=== PATIENT | male | born 1965 | race Caucasian/White ===

== ENCOUNTER 2020-04-02 10:47 | Emergency (ER) | payer SELFPAY ==
--- NOTE | 2020-04-02 11:13 | ER Document Report ---
ED Medical Screen (RME) - General Chief Complaint: Psych Problem Stated Complaint: PSYCH ISSUE/NEW MEDS NOT WORKING Time Seen by Provider: 04/02/20 11:09 Mode of Arrival: Ambulatory Information source: Patient Notes: 54-year-old male presents to ED for complaint of a lot of stress and despondency hopelessness since last week. He states that he does not plan to harm himself or kill himself he just would not mind dying at all. He states he did attempt suicide in August but does not plan to do this on his own now. He states he did have a 20-year marriage with his and had 3 children. He states he is been in [facility] for a while but got section 8 housing and now lives by himself since January 15 and he cannot stand being by himself. He states he rarely eats does not buy groceries he keeps his health and his person clean but does not eat except for enough to take his medication. He states his 3 children came to see him on Thursday and he was "not there "and now he feels extremely guilty because he was not present for this visit. He states he does smoke a pack a day does not drink or do any illicit drugs. He states [facility] this [facility] and [facility] told him that he needed to come right to the ED. He does have a home therapist that he does video visits with [facility] the [facility]. I have greeted and performed a rapid initial assessment of this patient. A comprehensive ED assessment and evaluation of the patient, analysis of test results and completion of medical decision making process will be conducted by an additional ED providers. - Related Data Allergies/Adverse Reactions: No Known Allergies Allergy (Unverified 04/02/20 11:08) Home Medications: latuda, gabapentin
[2020-04-02 12:06] LABS: APPEARANCE,URINE CLEAR; BILIRUBIN,URINE NEGATIVE (NEGATIVE); COLOR,URINE YELLOW; GLUCOSE, URINE NEGATIVE (NEGATIVE); KETONES,URINE NEGATIVE (NEGATIVE); LEUKOCYTE ESTERASE,URINE NEGATIVE (NEGATIVE); NITRITE,URINE NEGATIVE (NEGATIVE); PROTEIN,URINE NEGATIVE (NEGATIVE); URINE SPECIFIC GRAVITY 1.018; UROBILINOGEN,URINE NEGATIVE mg/dL (<2.0)
[2020-04-02 12:12] LABS: ABSOLUTE LYMPHOCYTES (AUTO) 0.9 10^3/uL (0.5-4.7); ABSOLUTE MONOCYTES (AUTO) 0.4 10^3/uL (0.1-1.4); ABSOLUTE NEUT (AUTO) 4.1 10^3/uL (1.7-8.2); BASOPHILS % (AUTO) 0.6 % (0-2); EOSINOPHILS % (AUTO) 0.3 % (0-6); HEMATOCRIT 38.7 % (37.9-51.0); HEMOGLOBIN 13.1 g/dL (13.5-17.0); LYMPHOCYTES % (AUTO) 16.7 % (13-45); MEAN CORPUSCULAR HEMOGLOBIN 30.5 pg (27.0-33.4); MEAN CORPUSCULAR HGB CONC 33.9 g/dL (32.0-36.0); MEAN CORPUSCULAR VOLUME 90 fl (80-97); MONOCYTES % (AUTO) 6.5 % (3-13); PLATELET COUNT 188 10^3/uL (150-450); RED CELL DISTRIBUTION WIDTH 14.5 % (11.5-14.0); SEGMENTED NEUTROPHILS % (AUTO) 75.9 % (42-78); TOTAL CELLS COUNTED % (AUTO) 100 %; WHITE BLOOD COUNT 5.4 10^3/uL (4.0-10.5)
[2020-04-02 12:31] LABS: ALBUMIN 4.5 g/dL (3.5-5.0); ALKALINE PHOSPHATASE 56 U/L (38-126); ANION GAP 8 (5-19); ASPARTATE AMINO TRANSFERASE 21 U/L (17-59); BILIRUBIN,TOTAL 0.7 mg/dL (0.2-1.3); BLOOD UREA NITROGEN 15 mg/dL (7-20); CALCIUM 9.6 mg/dL (8.4-10.2); CARBON DIOXIDE 24 mmol/L (22-30); CHLORIDE 107 mmol/L (98-107); GLUCOSE 91 mg/dL (75-110); POTASSIUM 4.4 mmol/L (3.6-5.0); TOTAL PROTEIN 7.3 g/dL (6.3-8.2)
[2020-04-02 12:33] LABS: URINE AMPHETAMINES SCREEN NEGATIVE; URINE BARBITURATES SCREEN NEGATIVE; URINE BENZODIAZEPINES SCREEN NEGATIVE; URINE COCAINE SCREEN NEGATIVE; URINE MARIJUANA (THC) SCREEN NEGATIVE; URINE METHADONE SCREEN NEGATIVE; URINE PHENCYCLIDINE SCREEN NEGATIVE
[2020-04-02 12:33] LABS: ACETAMINOPHEN < 10 ug/mL (10-30); ALCOHOL < 10 mg/dL (NONE DETECTED); SALICYLATE < 1.0 mg/dL (2.0-20.0)
--- NOTE | 2020-04-02 13:41 | ER Document Report ---
ED Psych Disorder / Suicide - General Chief Complaint: Psych Problem Stated Complaint: PSYCH ISSUE/NEW MEDS NOT WORKING Time Seen by Provider: 04/02/20 11:09 Primary Care Provider: [facility] [Provider Group] - Follow up in 3-5 days Mode of Arrival: Ambulatory Information source: Patient Notes: Patient presents complaining of increased stress and difficulty adjusting to living alone. Patient states he used to be homeless and he has several friends that he hung out with when he was homeless. Patient states that because he is in section 8 housing he cannot have anybody else at his house. Patient states that he had an anxiety attack that made him very nervous at home. Patient denies any suicidal or homicidal ideation. Patient states that he takes Latuda for his anxiety and depression symptoms. - HPI Patient complains to provider of: No: Suicidal ideation, Suicidal plan, Suicidal attempt Onset: This morning Quality of pain: No pain Suicide Risk Factors: Depressed, Male, No spouse Situational problems related to: Other - Lives alone Associated symptoms: Anxious, Depressed Similar symptoms previously: No Recently seen / treated by doctor: No - Related Data Allergies/Adverse Reactions: No Known Allergies Allergy (Unverified 04/02/20 11:08) Home Medications: latuda, gabapentin Past Medical History - General Information source: Patient - Social History Smoking Status: Current Every Day Smoker Chew tobacco use (# tins/day): No Frequency of alcohol use: None Drug Abuse: None Lives with: Alone Family History: Reviewed & Not Pertinent Patient has homicidal ideation: No Psychiatric Medical History: Reports: Hx Anxiety, Hx Depression Past Surgical History: Reports: Hx Herniorrhaphy Review of Systems - Review of Systems Constitutional: No symptoms reported EENT: No symptoms reported Cardiovascular: No symptoms reported Respiratory: No symptoms reported Gastrointestinal: No symptoms reported Genitourinary: No symptoms reported Male Genitourinary: No symptoms reported Musculoskeletal: No symptoms reported Skin: No symptoms reported Hematologic/Lymphatic: No symptoms reported Neurological/Psychological: Depression, Anxiety Physical Exam - Vital signs Vitals: Temp Pulse Resp BP Pulse Ox 98.7 F 45 L 18 108/64 98 04/02/20 14:32 04/02/20 14:32 04/02/20 14:32 04/02/20 14:32 04/02/20 14:32 - General General appearance: Appears well, Alert In distress: None - HEENT Head: Normocephalic, Atraumatic Eyes: Normal Conjunctiva: Normal Nasal: Normal Mouth/Lips: Normal Mucous membranes: Normal Neck: Normal, Supple. No: Lymphadenopathy - Respiratory Respiratory status: No respiratory distress Chest status: Nontender Breath sounds: Normal. No: Rales, Rhonchi, Stridor, Wheezing Chest palpation: Normal - Cardiovascular Rhythm: Regular Heart sounds: S1 appreciated, S2 appreciated Murmur: No - Abdominal Inspection: Normal - Back Back: Normal, Nontender - Extremities General upper extremity: Normal inspection, Nontender, Normal strength General lower extremity: Normal inspection, Nontender, Normal strength - Neurological Neuro grossly intact: Yes Cognition: Normal Lamonte Coma Scale Eye Opening: Spontaneous Jerome Coma Scale Verbal: Oriented Jerome Coma Scale Motor: Obeys Commands Jerome Coma Scale Total: 15 - Psychological Associated symptoms: Psychomotor agitation, Other - Poor eye contact - Skin Skin Temperature: Warm Skin Moisture: Dry Skin Color: Normal Course - Re-evaluation Re-evalutation: 04/02/20 16:49 Patient is medically clear for discharge at this time, behavioral health team does not feel that patient meets IVC criteria. They do make a recommendation in consultation with his [facility] provider to start BuSpar 5 mg twice a day and to increase Latuda to 40 mg daily. - Vital Signs Vital signs: Temp Pulse Resp BP Pulse Ox 98.7 F 45 L 18 108/64 98 04/02/20 14:32 04/02/20 14:32 04/02/20 14:32 04/02/20 14:32 04/02/20 14:32 - Laboratory Result Diagrams: 04/02/20 11:26 04/02/20 11:26 Laboratory results interpreted by me: 04/02/20 04/02/20 04/02/20 11:20 11:26 11:26 RBC 4.30 L Hgb 13.1 L RDW 14.5 H Urine Blood SMALL H Salicylates < 1.0 L Acetaminophen < 10 L 04/02/20 16:49 Labs- All tests 24 hr 04/02/20 04/02/20 04/02/20 11:20 11:20 11:26 WBC 5.4 RBC 4.30 L Hgb 13.1 L Hct 38.7 MCV 90 MCH 30.5 MCHC 33.9 RDW 14.5 H Plt Count 188 Lymph % (Auto) 16.7 Panola % (Auto) 6.5 Eos % (Auto) 0.3 Baso % (Auto) 0.6 Absolute Neuts (auto) 4.1 Absolute Lymphs (auto) 0.9 Absolute Monos (auto) 0.4 Absolute Eos (auto) 0.0 Absolute Basos (auto) 0.0 Seg Neutrophils % 75.9 Sodium Potassium Chloride Carbon Dioxide Anion Gap BUN Creatinine Est GFR ( Amer) Est GFR (MDRD) Non-Af Glucose Calcium Total Bilirubin Direct Bilirubin Neonat Total Bilirubin Neonat Direct Bilirubin Neonat Indirect Bili AST ALT Alkaline Phosphatase Total Protein Albumin Urine Color YELLOW Urine Appearance CLEAR Urine pH 5.0 Ur Specific [place] 1.018 Urine Protein NEGATIVE Urine Glucose (UA) NEGATIVE Urine Ketones NEGATIVE Urine Blood SMALL H Urine Nitrite NEGATIVE Urine Bilirubin NEGATIVE Urine Urobilinogen NEGATIVE Ur Leukocyte Esterase NEGATIVE Urine WBC (Auto) 0 Urine RBC (Auto) 1 U Hyaline Cast (Auto) 1 Urine Mucus (Auto) RARE Urine Ascorbic Acid NEGATIVE Salicylates Urine Opiates Screen NEGATIVE Urine Methadone Screen NEGATIVE Acetaminophen Ur Barbiturates Screen NEGATIVE Ur Phencyclidine Scrn NEGATIVE Ur Amphetamines Screen NEGATIVE U Benzodiazepines Scrn NEGATIVE Urine Cocaine Screen NEGATIVE U Marijuana (THC) Screen NEGATIVE Serum Alcohol 04/02/20 11:26 WBC RBC Hgb Hct MCV MCH MCHC RDW Plt Count Lymph % (Auto) [place] % (Auto) Eos % (Auto) Baso % (Auto) Absolute Neuts (auto) Absolute Lymphs (auto) Absolute Monos (auto) Absolute Eos (auto) Absolute Basos (auto) Seg Neutrophils % Sodium 138.5 Potassium 4.4 Chloride 107 Carbon Dioxide 24 Anion Gap 8 BUN 15 Creatinine 0.94 Est GFR ( Amer) > 60 Est GFR (MDRD) Non-Af > 60 Glucose 91 Calcium 9.6 Total Bilirubin 0.7 Direct Bilirubin 0.0 Neonat Total Bilirubin Not Reportable Neonat Direct Bilirubin Not Reportable Neonat Indirect Bili Not Reportable AST 21 ALT 16 Alkaline Phosphatase 56 Total Protein 7.3 Albumin 4.5 Urine Color Urine Appearance Urine pH Ur Specific [place] Urine Protein Urine Glucose (UA) Urine Ketones Urine Blood Urine Nitrite Urine Bilirubin Urine Urobilinogen Ur Leukocyte Esterase Urine WBC (Auto) Urine RBC (Auto) U Hyaline Cast (Auto) Urine Mucus (Auto) Urine Ascorbic Acid Salicylates < 1.0 L Urine Opiates Screen Urine Methadone Screen Acetaminophen < 10 L Ur Barbiturates Screen Ur Phencyclidine Scrn Ur Amphetamines Screen U Benzodiazepines Scrn Urine Cocaine Screen U Marijuana (THC) Screen Serum Alcohol < 10 Discharge - Discharge Clinical Impression: Depression Qualifiers: Depression Type: unspecified Qualified Code(s): F32.9 - Major depressive disorder, single episode, unspecified Condition: Stable Disposition: HOME, SELF-CARE Additional Instructions: You have been evaluated by both medical and behavioral health teams for an increase in your depression and anxiety and have been deemed appropriate for discharge. While in the emergency department you received the following services: Medical screening and assessment, nursing services, dietary services, pharmacological services, one-on-one counseling and/or psychotherapy, environmental services, and continuous observation by a patient safety professional. Medication recommendations are as follows: Please increase your home medication of Latuda to 40mg daily Please ass Buspar 5mg twice daily Please follow up with your outpatient mental health provider, the local [place], for your continued services. It is recommended you continue engaging with medication management in addition to therapy. Therapy should be goal orientated to help you interpret your environment, understand your triggers and build your positive coping skills. DEPRESSION: Your evaluation reveals that you have mental depression. While symptoms may be vague, they often include disturbance of sleep, fatigue, loss of appetite, and general loss of interest in life. While depression may be a side effect of drugs, or a reaction to a major change in your life, many cases have no known cause. If depression is acute, and related to a major loss in your life, you can expect it to clear completely with time. If you have been depressed a long time, are prone to repeated bouts of depression or low mood, or have been thinking of suicide, get help. Depression can be treated with anti-depressant medication and counselling. Long-term depression will often take a few weeks to clear, even with appropriate medication. Follow-up care is important. FOLLOW-UP CARE: If you have been referred to a physician for follow-up care, call the physician s office for an appointment as you were instructed or within the next two days.~ If you experience worsening or a significant change in your symptoms, notify the physician immediately or return to the Emergency Department at any time for re-evaluation. Prescriptions: Buspirone HCl 1 tab PO BID #14 tab Referrals: [facility] [Provider Group] - Follow up in 3-5 days
[2020-04-02 14:33] VITALS: BP 108/64
--- NOTE | 2020-04-02 16:37 | PSYCHOLOGICAL NOTE ---
Psych Note - Psych Note Date seen by psych provider: 04/02/20 Time seen by psych provider: 12:55 Psych Note: Reason for Consult: medication recommendations/ increase depression and anxiety 54-year-old male presents to ED for complaint of a lot of stress and despondency hopelessness since last week. He states that he does not plan to harm himself or kill himself he just would not mind dying at all. Patient reports he came to [facility] after speaking with [facility] nurse in [place]. He states he is diagnosed with Bipolar I disorder. He reports "I'm a little kookoo." He states he has been struggling with his anxiety and depression, being unmotivated and only eating when he needs to take his medications. He states he has little to no food in the fridge or cabinets because he has no motivation to go shopping, but admits he will go to the store to grab "calzones or something" to eat once a day so he can take his medication. He states he has been taking care of his hygiene and cleaning his apartment but little else; "I will just sit and stare at the wall." He states he was homeless for 3 years and got Section 8 housing in January; "I am not adjusting... I am not use to having a place to go...I am not use to having a bed to sleep in, it is nice but feels aw kward." He states he only sleeps for a few hours at a time and has had some panic attacks; "the worst part is the defining silence." Clinical presentation: Clean and dressed appropriately with shirt tucked in and belt. Good Insight Adjustment issues Cluster B personality characteristics Medication recommendations per [facility]'s contracted psychiatrist Dr Katheryn CEDENO and your [facility] are as follows: Increase your home medication of Latuda to 40mg daily please add Buspar 5mg twice daily to assist with your anxiety Impression/plan:Patient is cleared from acute psychiatric services. Dr. Colmenares was consulted on the care and management of this patient; attending physician is in agreement with recommendations and disposition.
[2020-04-02] MEDS ORDERED: BUSPIRONE HCL 10 MG TABLET PO ONE (16:54)
== END 2020-04-02 18:06 | disposition home or self-care (01) ==
LOC: ER 10:47
DX: F32.9 Major depressive disorder, single episode, unspecified (principal); F41.9 Anxiety disorder, unspecified; Z79.899 Other long term (current) drug therapy; Z60.2 Problems related to living alone; F17.200 Nicotine dependence, unspecified, uncomplicated
CPT/HCPCS: 36415; 80053; 80307; 81001; 85025; 99284